=== PATIENT | male | born 2000 | race Caucasian/White ===

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

== ENCOUNTER 2022-02-24 13:22 | Emergency (ER) | payer BC, OTHER ==
[~2022-02-24] VITALS: Ht 173 cm; Wt 104.0 kg
[~2022-02-24 13:22] MED LIST changes: -BARIUM for suspension 96% w/w (Vanilla Silq Medium Density) PO ONE; -BARIUM for suspension 98% w/w (Vanilla Silq High Density) PO ONE
--- NOTE | 2022-02-24 14:32 | ED General ---
General Chief Complaint: Respiratory Problems Stated Complaint: SOA History of Present Illness Date Seen by Provider: Feb 24, 2022 Time Seen by Provider: 14:18 Initial Comments 21 yo male presents to the clinic with chief complaint of SOA and CP. Pt reports that his breathing has felt different this past week and he has had difficulty taking a deep breath. Pt said sx were intermittent throughout the week but last night at 1730 he said he experienced sharp chest pain and the same SOA sx at work. He notes sx were more constant and frequent. Rates pain 4/10. 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 He notes that at present his sx do feel better and he was seen at the clinic 2 hours ago for the same sx. Exam findings and ECG there was unremarkable according to patient. Pt has hx of Asthma and uses his inhaler as needed. Pt did use it last night when sx got worse but there was no improvement with use. Denies any sick contacts. No TAMEZ, lightheadedness/dizziness, cough. Has hx of GERD and anxiety but reports sx feel different from that. No other complaints. Timing/Duration: 1 Week Associated Systoms: Chest Pain, Shortness of Air (MARISABEL GRANT) Allergies and Home Medications Allergies Coded Allergies: peanut (Verified Allergy, Unknown, 12/12/07) Uncoded Allergies: DOGS (Allergy, Unknown, 05/18/20) NUTS (Allergy, Unknown, 05/18/20) Patient Home Medication List Home Medication List Reviewed: Yes (MARISABEL GRANT) Albuterol (Proventil Inh) 17 Gm Aerosol, 1 GM IH, (Reported) Entered as Reported by: LORENZO JARAMILLO on 04/28/10 1321 Cetirizine Hcl (Zyrtec) 5 Mg Tablet, 1 EACH PO HS, (Reported) Entered as Reported by: MIKAELA HARE on 03/23/10 185 Esomeprazole Mag Trihydrate (Nexium) 20 Mg Suspdr.pkt, 1 TAB PO PRN, (Reported) Entered as Reported by: YADIRA LUQUE on 08/19/102129 Review of Systems Review of Systems Constitutional: no symptoms reported EENTM: no symptoms reported Respiratory: dyspnea on exertion Cardiovascular: no symptoms reported, chest pain (Right and left sided) Genitourinary: no symptoms reported Musculoskeletal: no symptoms reported Skin: no symptoms reported Psychiatric/Neurological: No Symptoms Reported Hematologic/Lymphatic: No Symptoms Reported Immunological/Allergic: no symptoms reported (MARISABEL GRANT) All Other Systems Reviewed Negative Unless Noted: Yes (MARISABEL GRANT) Past Imshljm-Aeetic-Vohiqt Hx Patient Social History Tobacco Use?: No Use of E-Cig and/or Vaping dev: No Substance use?: No (MARISABEL GRNAT) Past Medical History Reproductive Disorders: No (MARISABEL GRANT) Physical Exam Vital Signs Vital Signs - First Documented 02/24/22 14:05 Temp 36.8 Pulse 82 Resp 16 B/P (MAP) 125/77 (93) Pulse Ox 97 O2 Delivery Room Air (NELI VEGA MD) Vital Signs Capillary Refill : (MARISABEL GRANT) Height, Weight, BMI Height: '" Weight: lbs. oz. kg; BMI Method:Stated General Appearance: No Apparent Distress, WD/WN Eyes: Bilateral Eye Normal Inspection, Bilateral Eye PERRL, Bilateral Eye EOMI Neck: Full Range of Motion, Normal Inspection, Non Tender, Supple Respiratory: Chest Non Tender, Lungs Clear, Normal Breath Sounds, No Accessory Muscle Use, No Respiratory Distress Cardiovascular: Regular Rate, Rhythm, No Edema, No Gallop, No JVD, No Murmur, Normal Peripheral Pulses Gastrointestinal: Normal Bowel Sounds, No Organomegaly, No Pulsatile Mass, Non Tender, Soft Extremity: Normal Capillary Refill, Normal Inspection, Normal Range of Motion, Non Tender, No Calf Tenderness Neurologic/Psychiatric: Alert, Oriented x3, No Motor/Sensory Deficits, Normal 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, 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 as Tested Skin: Normal Color, Warm/Dry Lymphatic: No Adenopathy (MARISABEL GRANT) Progress/Results/Core Measures Suspected Sepsis SIRS Temperature: Pulse: Respiratory Rate: Blood Pressure / Mean: (MARISABEL GRANT) Results/Orders Lab Results Laboratory Tests Test 02/24/22 15:00 Range/Units Influenza Type A (RT-PCR) Not Detected Not Detecte Influenza Type B (RT-PCR) Not Detected Not Detecte SARS-CoV-2 RNA (RT-PCR) Not Detected Not Detecte (NELI VEGA MD) My Orders Orders - NELI VEGA MD Covid 19 Inhouse Test (02/24/22 14:49) Influenza A And B By Pcr (02/24/22 14:49) Ibuprofen Tablet (Motrin Tablet) (02/24/22 15:00) Chest Pa/Lat (2 View) (02/24/22 14:49) Ondansetron Oral Dissolve Tab (Zofran (02/24/22 16:00) Lidocaine 2% Viscous 15 Ml (Xylocaine Vi (02/24/22 16:00) Antacid Suspension (Mylanta Suspension (02/24/22 16:00) (NELI VEGA MD) Medications Given in ED Current Medications Medications Dose Ordered Sig/Destiny Route Start Time Stop Time Status Last Admin Dose Admin Al Hydrox/Mg Hydrox/Simethicone 30 ml ONCE ONCE PO 02/24/22 16:00 02/24/22 16:01 DC 02/24/22 16:06 30 ML Ibuprofen 600 mg ONCE ONCE PO 02/24/22 15:00 02/24/22 15:01 DC 02/24/22 15:18 600 MG Lidocaine HCl 15 ml ONCE ONCE PO 02/24/22 16:00 02/24/22 16:01 DC 02/24/22 16:06 15 ML Ondansetron HCl 4 mg ONCE ONCE SL 02/24/22 16:00 02/24/22 16:01 DC 02/24/22 16:06 4 MG (NELI VEGA MD) Vital Signs/I&O 02/24/22 02/24/22 14:05 14:05 Temp 36.8 Pulse 82 Resp 16 B/P (MAP) 125/77 (93) Pulse Ox 97 O2 Delivery Room Air Room Air (NELI VEGA MD) Vital Signs/I&O Capillary Refill : (MARISABEL GRANT) Progress Note : Time: 16:01 Progress Note Pt is feeling better after medication. Labs and CXR unremarkable. Pt says he no longer has chest pain but would like to proceed with GI cocktail given his GI hx. (MARISABEL GRANT) Departure Impression Primary Impression: Pleuritic chest pain Disposition: 01 HOME, SELF-CARE Condition: Improved Departure-Patient Inst. Referrals: HENNA MISTRY V DO (PCP/Family) Primary Care Physician Patient Instructions: Chest Pain That Is Not Caused by the Heart (DC) Add. Discharge Instructions: Your chest pain is likely caused by esophagitis (inflammation of the esophagus) or pleuritis (inflammation of the inner chest wall). Increase omeprazole to 20 mg twice daily until you follow-up with your primary care provider. Take Tylenol (acetaminophen) up to 1000 mg every 6 hours as needed for primary treatment of pain. This should not increase any pain coming from your stomach or esophagus. If you take ibuprofen, you may take up to 600 mg every 6 hours as needed, but take with food or milk as this may worsen any inflammation of the stomach or esophagus you may already have. Make an appointment as soon as possible with your primary care provider. Return to care if you have worsening symptoms despite following these instructions. All discharge instructions reviewed with patient and/or family. Voiced understanding. Copy Copies To 1: HENNA MISTRY ANISHA T Feb 24, 2022 14:32 NELI VEGA MD Feb 24, 2022 16:51
[2022-02-24] MEDS ORDERED: IBUPROFEN TABLET 200 MG TAB PO ONE (15:00)
--- NOTE | 2022-02-24 15:07 | Diagnostic Imaging Report ---
INDICATION: Pleuritic chest pain. Comparison made with prior examination 03/22/2010. FINDINGS: The heart size, mediastinal configuration, and pulmonary vascularity are within normal limits. There is no pleural effusion, pneumothorax, or pneumonia. The osseous structures are unremarkable. IMPRESSION: No acute cardiopulmonary abnormality. Dictated by: Dictated on workstation # [id number]
[2022-02-24] MEDS ORDERED: LIDOCAINE 2% VISCOUS 15 ML UDC PO ONE (16:00)
[2022-02-24] MEDS ORDERED: ONDANSETRON 4 MG (ZOFRAN) ORAL DISSOLVE TAB SL ONE (16:00)
[2022-02-24] MEDS ORDERED: ANTACID SUSP 30 ML UDC (MYLANTA) PO ONE (16:00)
[2022-02-24 16:56] VITALS: BP 120/76
== END 2022-02-24 16:56 | disposition home or self-care (01) ==
LOC: EDUNIT# 13:22 → ER 13:25
DX: R07.81 Pleurodynia (principal); Z20.822 Contact with and (suspected) exposure to COVID-19
CPT/HCPCS: 71046; 87636